=== PATIENT | male | born 1960 | race African-American/Black ===

== ENCOUNTER → 2017-07-16 | Outpatient (CLI) | payer OTHER ==
[~2017-07-16] VITALS: Ht 165.1 cm; Wt 90.3 kg
[~2017-07-16] MED LIST: ADVAIR 250-501 EACH INH; BACTRIM DS TAB1 EACH PO; COUMADIN 2 MG TA2 M1 PO; DEPAKOTE ER500 MG PO; FISH OIL 1,001000 M2 PO; HYDROCHLOROTH12.5 M1 PO; HYDROCHLOROTHIA25 M1 PO; HYDROCODONE-AP1 EAC6 PO; LIDODERM 5%1 PATC1 TRANSDERM; LISINOPRIL1 GM PO; LISINOPRIL10 MG PO; LUMIGAN2.5 M1 OP; MULTI VITAMIN1 EACH PO; NORCO 5-325 TA1 EACH PO; OXYCODONE HCL15 MG PO; OXYCONTIN10 M1 PO; OXYCONTIN20 M1 PO; PROAIR HFA8.5 GM INH; QUETIAPINE FUM100 MG PO; SIMVASTATIN1 GM PO; SIMVASTATIN10 MG PO; SIMVASTATIN40 MG PO; VENTOLIN HFA 1818 GM INH
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
[2017-07-16 08:24] VITALS: BP 123/91
== END ==
LOC: PAIN 06:58
DX: G89.29 Other chronic pain (principal); M54.5 Low back pain; M19.90 Unspecified osteoarthritis, unspecified site; I10 Essential (primary) hypertension; E78.5 Hyperlipidemia, unspecified; J45.909 Unspecified asthma, uncomplicated; M54.31 Sciatica, right side; Z91.041 Radiographic dye allergy status